=== PATIENT | female | born 1960 | race African-American/Black ===

== ENCOUNTER 2021-03-28 11:50 | Emergency (ER) | payer OTHER ==
[~2021-03-28] VITALS: Ht 162.6 cm; Wt 80.0 kg
[2021-03-28] MEDS ORDERED: ACETAMINOPHEN 325MG TABLET PO ONE (12:30)
[2021-03-28 14:52] VITALS: BP 135/89
== END 2021-03-28 15:02 | disposition home or self-care (01) ==
LOC: ER 12:14
DX: S76.312A Strain of muscle, fascia and tendon of the posterior muscle group at thigh level, left thigh, initial encounter (principal); Z88.5 Allergy status to narcotic agent; W01.0XXA Fall on same level from slipping, tripping and stumbling without subsequent striking against object, initial encounter; Y93.89 Activity, other specified; Y92.89 Other specified places as the place of occurrence of the external cause; Y99.8 Other external cause status
CPT/HCPCS: 71045; 73060; 73522; 99284